=== PATIENT | male | born 1990 | race Caucasian/White ===

== ENCOUNTER 2025-02-15 15:24 | Emergency (ER) | payer SELFPAY ==
[2025-02-15] MEDS ORDERED: SMZ./TMP. 800/160 MG TABLET ONE (15:35)
--- NOTE | 2025-02-15 15:43 | EDPHYS ---
Physician Documentation [facility] Name: Uriel Perry II Age: 34 yrs Sex: Male : 1990 Arrival Date: 02/15/2025 Time: 15:24 Bed IW1 Private MD: ED Physician Matt Noguera HPI: 02/15 15:39 This 34 yrs old Male presents to ER via Ambulatory with complaints of Insect Bite. cp 15:39 The complaints affect the palmar aspect of right forearm. Treatment prior to arrival cp includes: no previous treatment. Associated signs and symptoms: Pertinent positives: erythema, swelling, warmth, Pertinent negatives: fever. 15:39 The patient or guardian complains of a bite, spider. Onset: The symptoms/episode cp began/occurred 2 day(s) ago. Historical: - Allergies: 15:35 tramadol; iw 15:35 Flexeril; iw - Home Meds: 15:35 None [Active]; iw - PMHx: 15:36 None; iw - PSHx: 15:35 None; iw - Infectious Disease History:: Denies. ROS: 15:39 Constitutional: Negative for body aches, chills, fever, poor PO intake, cp 15:39 Respiratory: Negative for cough, shortness of breath, wheezing, 15:39 Abdomen/GI: Negative for vomiting, diarrhea, constipation, 15:39 MS/extremity: Positive for of the volar side right distal forearm, spider bite, Exam: 15:40 Head/Face: Normocephalic, atraumatic. cp 15:40 Constitutional: The patient appears in no acute distress, alert, awake, non-toxic, well developed, well nourished, 15:40 Cardiovascular: Rate: normal, 15:40 Respiratory: the patient does not display signs of respiratory distress, Respirations: normal, no use of accessory muscles, no retractions, labored breathing, is not present, 15:40 Abdomen/GI: Inspection: abdomen appears normal, 15:40 Musculoskeletal/extremity: Extremities: noted in the volar side distal right forearm: small open wound with surrounding erythema and swelling, tenderness to palpation, no drainage expressed, Vital Signs: 15:36 BP 133 / 93; Pulse 94; Resp 18; Temp 98.4(O); Pulse Ox 100% on R/A; Weight 84.37 kg; iw Height 5 ft. 10 in. ; 15:36 Body Mass Index 26.69 (84.37 kg, 177.8 cm) iw MDM: 15:36 Medical Screening Exam initiated cp 15:43 Data reviewed: vital signs, nurses notes, and as a result, I will discharge patient. cp Administered Medications: 15:49 Drug: Trimethoprim-Sulfamethoxazole PO (160 mg-800 mg (DS) 1 tablet PO once Route: PO; iw Disposition: 02/16 14:16 Chart complete. cp Disposition Summary: 02/15/25 15:43 Discharge Ordered Notes: Location: Home cp Problem: new cp Symptoms: are unchanged cp Condition: Stable cp Diagnosis - Cellulitis of right upper limb cp Followup: cp - With: Private Physician - When: 2 - 3 days - Reason: Worsening of condition Discharge Instructions: - Discharge Summary Sheet em1 - Cellulitis, Adult cp Forms: - Work release form em1 - Medication Reconciliation Form cp - Antibiotic Education cp - Prescription Opioid Use cp - Patient Portal Instructions cp - Leadership Thank You Letter cp Prescriptions: - Bactrim DS 800-160 mg Oral Tablet - take 1 tablet ORAL route every 12 hours for 10 days; 20 tablet; Refills: 0, cp Product Selection Permitted Addendum: 02/18/2025 07:42 Co-signature as Attending Physician, Matt Noguera MD I reviewed the patient's care r n provided by the Advanced Practice Provider and agree with the diagnosis and treatment plan. Signatures: Phuong Peña RN RN iw Nieto, Roman, MD MD rn Page, Corey, PAShahriarC PA-C cp Corrections: (The following items were deleted from the chart) 02/16 14:16 02/15 15:40 The patient or guardian complains of a bite, spider, cp cp 02/16 14:16 02/15 15:40 The complaints affect the palmar aspect of right forearm, cp cp 02/16 14:16 02/15 15:40 Onset: The symptoms/episode began/occurred 2 day(s) ago, cp cp 02/16 14:16 02/15 15:40 Treatment prior to arrival includes: no previous treatment, cp cp 02/16 14:16 02/15 15:40 Associated signs and symptoms: Pertinent positives: erythema, swelling, cp warmth, Pertinent negatives: fever, cp
--- NOTE | 2025-02-15 15:43 | ER ---
Nurse's Notes [facility] Name: Uriel Perry II Age: 34 yrs Sex: Male : 1990 Arrival Date: 02/15/2025 Time: 15:24 Bed IW1 Private MD: Diagnosis: Cellulitis of right upper limb Presentation: 02/15 15:35 Chief complaint: Patient states: saw a spider bite him on RFA two days ago, has an open iw sore to the area now. Coronavirus screen: At this time, the client does not indicate any symptoms associated with coronavirus-19. Ebola Screen: No symptoms or risks identified at this time. Initial Sepsis Screen: Does the patient meet any 2 criteria? No. Patient's initial sepsis screen is negative. Does the patient have a suspected source of infection? No. Patient's initial sepsis screen is negative. Risk Assessment: Do you want to hurt yourself or someone else? Patient reports no desire to harm self or others. Onset of symptoms was February 13, 2025. 15:35 Method Of Arrival: Ambulatory iw 15:35 Acuity: ROSA 4 iw Historical: - Allergies: 15:35 tramadol; iw 15:35 Flexeril; iw - Home Meds: 15:35 None [Active]; iw - PMHx: 15:36 None; iw - PSHx: 15:35 None; iw - Infectious Disease History:: Denies. Assessment: 15:38 General: Appears in no apparent distress. Behavior is calm, cooperative. Pain: iw Complains of pain in dorsal aspect of right forearm. Neuro: Level of Consciousness is awake, alert, obeys commands, Oriented to person, place, time, situation, Moves all extremities. Full function. Derm: Skin is intact, is healthy with good turgor, Skin is pink, warm \T\ dry. Musculoskeletal: Range of motion: intact in all extremities. Vital Signs: 15:36 BP 133 / 93; Pulse 94; Resp 18; Temp 98.4(O); Pulse Ox 100% on R/A; Weight 84.37 kg; iw Height 5 ft. 10 in. ; 15:36 Body Mass Index 26.69 (84.37 kg, 177.8 cm) iw ED Course: 15:26 Patient arrived in ED. al6 15:31 Man Sotelo PA-C is PHCP. cp 15:31 Matt Noguera MD is Attending Physician. cp 15:35 Triage completed. iw 15:37 Arm band placed on. iw 15:38 Phuong Peña RN is Primary Nurse. iw Administered Medications: 15:49 Drug: Trimethoprim-Sulfamethoxazole PO (160 mg-800 mg (DS) 1 tablet PO once Route: PO; iw Outcome: 15:43 Discharge ordered by MD. cp 15:49 Patient left the ED. iw Signatures: Phuong Peña RN RN iw Man Sotelo PA-C PA-C [facility] Corrections: (The following items were deleted from the chart) 15:37 15:35 Acuity: ROSA 4 iw iw 15:37 15:35 Acuity: ROSA 3 iw iw 15:38 15:36 Pulse 94bpm; Resp 18bpm; Pulse Ox 100% RA; iw iw 15:39 15:36 BP 133 / 93; Pulse 94bpm; Resp 18bpm; Pulse Ox 100% RA; 84.37 kg; Height 5 ft. 10 iw in.; BMI: 26.6; iw
[2025-02-15 15:53] VITALS: BP 133/93; TEMP 98.4; O2SAT 100
== END 2025-02-15 15:49 | disposition home or self-care (01) ==
LOC: ER 15:24
DX: L03.113 Cellulitis of right upper limb (principal)
CPT/HCPCS: 99282

== ENCOUNTER 2025-03-13 17:02 | Emergency (ER) | payer SELFPAY ==
--- OUTSIDE RECORDS SUMMARY | 2025-03-13 17:07 | XMS REPORT | Continuity of Care Document ---
Author Name Unknown Address [address] [place] [address] [facility] Address [address] [facility] [address] [place] [address] Care Team Providers Care Glass Curvature Gauger Name Role Phone PCP, PATIENT DOES NOT HAVE A Primary Care Physic rosendo Unavailable DHEERAJ SIDHU Attending Clinician Unavailable DHEERAJ SIDHU Attending Clinician Unavailable DHEERAJ SIDHU Admitting Clinician Unavailable Allergies, Adverse Reactions, Alerts Allergy Name Allergy Type Status Severity Reaction(s) Onset Date Inactive Date Treating Clinician Comments Source TRAMADOL DRUG INGREDI Active Med Hives 09-03 00:00: 00 [facility] Encounters Start Date/Time End Date/Time Encounter Type Admission Type Attending Clinicians Care Facility Care Department Encounter ID Source 2024-09-03 17:37:00 2024-09-03 20:54:00 Emergency X DHEERAJ SIDHU [facility] ERT [id number] [facility]
--- NOTE | 2025-03-13 18:12 | EDPHYS ---
Physician Documentation [facility] Name: Uriel Perry II Age: 34 yrs Sex: Male : 1990 Arrival Date: 03/13/2025 Time: 17:02 Bed IW9 Private MD: ED Physician Man Askew HPI: 03/13 17:39 This 34 yrs old Male presents to ER via Ambulatory with complaints of Skin Sore(s). cp 17:40 Patient is a 34-year-old male who returns to the emergency department after being seen cp last month for possible spider bites. Patient presents today with reports of a spider bite to his right forearm into the left side of his face near his lip. Patient reports the bite to his right forearm occurred on 02/28 and the bite to his left side of his face occurred on 03/09. Patient denies fever. Historical: - Allergies: 17:34 Flexeril; dd2 17:34 tramadol; dd2 - PMHx: 17:34 None; dd2 - PSHx: 17:34 None; dd2 - Immunization history:: Adult Immunizations up to date. - Infectious Disease History:: Denies. - Social history:: Smoking status: Patient reports the use of cigarette tobacco products, smokes one pack cigarettes per day. ROS: 17:45 Constitutional: Negative for body aches, chills, fever, poor PO intake, cp 17:45 Eyes: Negative for injury, pain, redness, and discharge, cp 17:45 Abdomen/GI: Negative for abdominal pain, nausea, vomiting, and diarrhea, 17:45 Skin: Positive for of the right forearm and left side of face, spider bite, 17:45 Neuro: Negative for altered mental status, dizziness, headache, 17:45 All other systems are negative, Exam: 17:50 Constitutional: The patient appears in no acute distress, alert, awake, comfortable, cp non-toxic, well developed, well nourished, 17:50 Head/face: Noted is open wound noted left side of face near lips with mild erythema cp through dermal layer, no subcutaneous tissue exposed, scant honey colored exudate noted. 17:50 Eyes: Periorbital structures: appear normal, Conjunctiva: normal, no exudate, no injection, Sclera: no appreciated abnormality, Lids and lashes: appear normal, 17:50 ENT: External ear(s): are unremarkable, Nose: is normal, Mouth: Lips: moist, Oral mucosa: moist, Posterior pharynx: Airway: no evidence of obstruction, patent, Voice: is normal, 17:50 Neck: ROM/movement: is normal, is supple, without pain, no range of motions limitations, 17:50 Chest/axilla: Inspection: normal, 17:50 Cardiovascular: Rate: tachycardic, 17:50 Respiratory: the patient does not display signs of respiratory distress, Respirations: normal, no use of accessory muscles, no retractions, labored breathing, is not present, Breath sounds: are clear throughout, no decreased breath sounds, no stridor, no wheezing, 17:50 Abdomen/GI: Inspection: abdomen appears normal, Palpation: abdomen is soft and non-tender, in all quadrants, 17:50 Musculoskeletal/extremity: Extremities: noted in the volar side of right forearm: quarter size wound noted, extends through dermal layer of skin with no subcutaneous tissue exposed. mild erythema, mild swelling, no drainage expressed, Vital Signs: 17:32 BP 149 / 93; Pulse 106; Resp 16; Temp 98.7; Pulse Ox 99% ; Pain 7/10; dd2 19:00 BP 137 / 85; Pulse 91; Resp 16; Temp 98.4; Pulse Ox 100% on R/A; dd2 17:32 Pain Scale: Adult dd2 MDM: 17:34 Medical Screening Exam initiated cp 18:10 Data reviewed: vital signs, nurses notes, and as a result, I will discharge patient. cp 18:10 Differential diagnosis: abscess, allergic reaction, cellulitis, insect bite. cp Counseling: I had a detailed discussion with the patient and/or guardian regarding the historical points, exam findings, and any diagnostic results supporting the discharge/admit diagnosis, the need for outpatient follow up, a family practitioner, to return to the emergency department if symptoms worsen or persist or if there are any questions or concerns that arise at home. ED course: VSS. Non-toxic appearance. RX for oral antibiotic and topical antibiotic. Patient instructed to clean skin 2-3 times daily with warm water and soap and return worsening signs infection. Administered Medications: 18:56 Drug: Trimethoprim-Sulfamethoxazole PO (160 mg-800 mg (DS) 2 tabs PO once Route: PO; dd2 18:58 Follow up: Response: Medication administered at discharge. dd2 Disposition: 03/14 17:53 Chart complete. cp Disposition Summary: 03/13/25 18:11 Discharge Ordered Notes: Location: Home cp Problem: new cp Symptoms: have improved cp Condition: Stable cp Diagnosis - Local infection of the skin and subcutaneous tissue, unspecified cp Followup: cp - With: Private Physician - When: 2 - 3 days - Reason: Recheck today's complaints Discharge Instructions: - Discharge Summary Sheet cp - Cellulitis, Adult cp Forms: - Medication Reconciliation Form cp - Antibiotic Education cp - Prescription Opioid Use cp - Patient Portal Instructions cp - Leadership Thank You Letter cp Prescriptions: - mupirocin 2 % Topical ointment - apply 1 application TOPICAL route 2-3 times daily; 45 gram tube; Refills: 0, cp Product Selection Permitted - Bactrim DS 800-160 mg Oral Tablet - take 1 tablet ORAL route every 12 hours for 10 days; 20 tablet; Refills: 0, cp Product Selection Permitted Signatures: Man Sotelo PA-C PA-C cp DAVIS, DIANA, RN RN dd2 Corrections: (The following items were deleted from the chart) 17:29 03/13 17:40 Patient is a 34-year-old male who returns to the emergency department after cp being seen last month for possible spider bites. Patient presents today with reports of a spider bite to his right forearm into the left side of his face near his lip. cp
--- NOTE | 2025-03-13 18:12 | ER ---
Nurse's Notes [facility] Name: Uriel Perry II Age: 34 yrs Sex: Male : 1990 Arrival Date: 03/13/2025 Time: 17:02 Bed IW9 Private MD: Diagnosis: Local infection of the skin and subcutaneous tissue, unspecified Presentation: 03/13 17:32 Chief complaint: Patient states: HE HAS A SPIDER BITE ON RT ARM 02/28/2025, LT SIDE OF dd2 FACE 03/09/2025 AND NOW HAS A MASS IN HIS CHIN. Coronavirus screen: At this time, the client does not indicate any symptoms associated with coronavirus-19. Ebola Screen: No symptoms or risks identified at this time. Initial Sepsis Screen: Does the patient meet any 2 criteria? No. Patient's initial sepsis screen is negative. Does the patient have a suspected source of infection? No. Patient's initial sepsis screen is negative. Risk Assessment: Do you want to hurt yourself or someone else? Patient reports no desire to harm self or others. Onset of symptoms was February 28, 2025. 17:32 Method Of Arrival: Ambulatory dd2 17:32 Acuity: ROSA 3 dd2 Triage Assessment: 17:34 General: Appears in no apparent distress. Behavior is calm, cooperative, appropriate dd2 for age. Pain: Complains of pain in right arm, left corner of mouth and submental area. Derm: Wound noted right arm and left corner of mouth. Historical: - Allergies: 17:34 Flexeril; dd2 17:34 tramadol; dd2 - PMHx: 17:34 None; dd2 - PSHx: 17:34 None; dd2 - Immunization history:: Adult Immunizations up to date. - Infectious Disease History:: Denies. - Social history:: Smoking status: Patient reports the use of cigarette tobacco products, smokes one pack cigarettes per day. Screenin:58 [facility] ED Fall Risk Assessment (Adult) History of falling in the last 3 months, dd2 including since admission No falls in past 3 months (0 pts) Confusion or Disorientation No (0 pts) Intoxicated or Sedated No (0 pts) Impaired Gait No (0 pts) Mobility Assist Device Used No (0 pt) Altered Elimination No (0 pt) Score/Fall Risk Level 0 - 2 = Low Risk Oriented to surroundings, Maintained a safe environment. Abuse screen: Denies threats or abuse. Denies injuries from another. Nutritional screening: No deficits noted. Tuberculosis screening: No symptoms or risk factors identified. Assessment: 18:58 Derm: Wound noted submental area and right arm and left corner of mouth Wound is red dd2 lesions with scabbing noted. Vital Signs: 17:32 BP 149 / 93; Pulse 106; Resp 16; Temp 98.7; Pulse Ox 99% ; Pain 7/10; dd2 19:00 BP 137 / 85; Pulse 91; Resp 16; Temp 98.4; Pulse Ox 100% on R/A; dd2 17:32 Pain Scale: Adult dd2 ED Course: 17:04 Patient arrived in ED. mr 17:05 Man Sotelo PA-C is PHCP. cp 17:05 Man Askew MD is Attending Physician. cp 17:34 Triage completed. dd2 17:34 Arm band placed on left wrist. dd2 18:58 Patient has correct armband on for positive identification. Provided Education on: d/c dd2 education and f/u. 18:58 No provider procedures requiring assistance completed. Patient did not have IV access dd2 during this emergency room visit. Administered Medications: 18:56 Drug: Trimethoprim-Sulfamethoxazole PO (160 mg-800 mg (DS) 2 tabs PO once Route: PO; dd2 18:58 Follow up: Response: Medication administered at discharge. dd2 Medication: 18:58 VIS not applicable for this client. dd2 Outcome: 18:11 Discharge ordered by MD. cp 18:58 Discharged to home ambulatory, dd2 18:58 Condition: good 18:58 Discharge instructions given to patient, Instructed on discharge instructions, follow up and referral plans. medication usage, Demonstrated understanding of instructions, follow-up care, medications, Prescriptions given X 2, 19:00 Patient left the ED. dd2 Signatures: Jessica Jin, Lv Awan Man Sotelo PA-C PA-C cp DAVIS, DIANA, RN RN dd2
[2025-03-13] MEDS ORDERED: SMZ./TMP. 800/160 MG TABLET ONE (18:54)
[2025-03-13 19:58] VITALS: BP 137/85; TEMP 98.4; O2SAT 100
== END 2025-03-13 19:00 | disposition home or self-care (01) ==
LOC: ER 17:02
DX: L08.9 Local infection of the skin and subcutaneous tissue, unspecified (principal)
CPT/HCPCS: 99283